=== PATIENT | male | born 1985 | race Caucasian/White ===

== ENCOUNTER 2021-08-30 04:35 | Emergency (ER) | payer OTHER ==
[~2021-08-30] VITALS: Ht 180.3 cm; Wt 99.8 kg
[2021-08-30 04:38] VITALS: BP 150/98
--- NOTE | 2021-08-30 04:47 | NUR ---
Dr. Locke at chair A to exam patient.
[2021-08-30 04:53] VITALS: BP 150/98
--- NOTE | 2021-08-30 04:54 | NUR ---
Patient discharged with v/s stable. Written and verbal after care instructions given and explained. Patient verbalized understanding. Police with in custody. All questions addressed prior to discharge. Advised to follow up with PMD. VSS, A/O, AMBULATORY, AND UNLABORED BREATHING. NO NURSING INTERVENTIONS NEEDED.
== END 2021-08-30 04:54 ==
LOC: MED 04:35
DX: I10 Essential (primary) hypertension (principal); Z02.89 Encounter for other administrative examinations
CPT/HCPCS: 99283